=== PATIENT | female | born 1975 | race Caucasian/White ===

== ENCOUNTER → 2018-02-26 13:53 | Outpatient (CLI) | payer OTHER, SELFPAY ==
[2018-03-01 08:38] LABS: HPV Reflexed? NOT INDICATED
== END ==
PROVIDERS: PCP Family Medicine; Visit Provider Obstetrics & Gynecology
DX: Z12.4 Encounter for screening for malignant neoplasm of cervix (principal)
CPT/HCPCS: 88175; G0145

== ENCOUNTER → 2020-04-10 10:23 | Outpatient (CLI) | payer OTHER, SELFPAY ==
--- NOTE | 2020-04-10 10:27 | BI_ITS ---
MAMMOGRAPHY - BILATERAL SCREENING REASON FOR EXAM: Female, 44 years old. Routine annual screening examination. PERTINENT HISTORY: Grandmother with breast cancer. TECHNIQUE: Digital bilateral breast bandar (3D mammographic acquisition) in the CC and MLO projections. 2-D mediolateral oblique (MLO) and craniocaudad (CC) views of both breasts were obtained. CAD: Full Field Digital Mammography with Computer Added Detection was performed. COMPARISON: Comparison is made with prior study dated 08/01/2016 and 01/29/2015. FINDINGS: Breast Composition: There are scattered areas of fibroglandular density. There are no dominant masses or suspicious calcifications. Stable asymmetry of breast tissue were more breast tissue is seen in the subareolar region of the right breast as compared to the left breast. No other significant abnormalities are identified. There has been no significant change since the prior study. BI/SCRN MAMM (CAD)W/BANDAR BILAT IMPRESSION: Stable bilateral screening mammogram. Yearly follow-up mammogram recommended. (A) ASSESSMENT CATEGORY: BIRADS Category 2: Benign. A letter regarding these results will be sent to the patient by the facility within 30 days. Approximately 10% of breast cancers are not detected by mammography. A normal mammogram should not delay biopsy of a clinically suspicious abnormality. [id number] Electronically Signed: Ruslan Quintanilla, at 13:00 EST , Service support ,
== END ==
PROVIDERS: PCP Family Medicine; Referring Provider Student in an Organized Health Care Education/Training Program; Visit Provider Student in an Organized Health Care Education/Training Program
DX: Z12.31 Encounter for screening mammogram for malignant neoplasm of breast (principal)
CPT/HCPCS: 77063; 77067

== ENCOUNTER 2021-06-03 09:04 | Outpatient (CLI) | payer OTHER, SELFPAY ==
[2021-06-09 16:10] LABS: HPV APTIMA, High Risk Negative (Negative)
== END 2021-06-03 23:59 | disposition home or self-care (01) ==
LOC: WOBLAB 09:05
PROVIDERS: PCP Family Medicine; Visit Provider Student in an Organized Health Care Education/Training Program
DX: Z12.4 Encounter for screening for malignant neoplasm of cervix (principal)
CPT/HCPCS: 87624; 88175; G0145

== ENCOUNTER → 2021-07-28 | Outpatient (CLI) | payer OTHER, SELFPAY ==
--- NOTE | 2021-07-28 15:28 | BI_ITS ---
MAMMOGRAPHY - BILATERAL SCREENING REASON FOR EXAM: Female, 45 years old. Routine annual screening examination. PERTINENT HISTORY: Grandmother with breast cancer. Aunt with breast cancer. TECHNIQUE: Digital bilateral breast bandar (3D mammographic acquisition) in the CC and MLO projections. 2-D mediolateral oblique (MLO) and craniocaudad (CC) views of both breasts were obtained. CAD: Full Field Digital Mammography with Computer Added Detection was performed. COMPARISON: Comparison is made with prior study dated 04/10/2020 and 08/01/2016. FINDINGS: Breast Composition: There are scattered areas of fibroglandular density. There are no dominant masses or suspicious calcifications. No other significant abnormalities are identified. There has been no significant change since the prior study. BI/SCRN MAMM (CAD)W/BANDAR BILAT IMPRESSION: Stable bilateral screening mammogram. Yearly follow-up mammogram recommended. (A) ASSESSMENT CATEGORY: BIRADS Category 1: Negative. A letter regarding these results will be sent to the patient by the facility within 30 days. Approximately 10% of breast cancers are not detected by mammography. A normal mammogram should not delay biopsy of a clinically suspicious abnormality. [id number] Electronically Signed: Ruslan Quintanilla MD at 8:00 EDT ,
== END | disposition home or self-care (01) ==
LOC: OPBI 15:25
PROVIDERS: PCP Physician Assistant; Referring Provider Student in an Organized Health Care Education/Training Program; Visit Provider Student in an Organized Health Care Education/Training Program
DX: Z12.31 Encounter for screening mammogram for malignant neoplasm of breast (principal)
CPT/HCPCS: 77063; 77067

== ENCOUNTER → 2022-08-17 | Outpatient (CLI) | payer OTHER, SELFPAY ==
--- NOTE | 2022-08-17 14:01 | BI_ITS ---
MAMMOGRAPHY - BILATERAL SCREENING REASON FOR EXAM: Female, 46 years old. Routine annual screening examination. PERTINENT HISTORY: Aunt with breast cancer. Grandmother with breast cancer. TECHNIQUE: Digital bilateral breast bandar (3D mammographic acquisition) in the CC and MLO projections. 2-D mediolateral oblique (MLO) and craniocaudad (CC) views of both breasts were obtained. CAD: Full Field Digital Mammography with Computer Added Detection was performed. COMPARISON: Screening mammogram from 07/28/2021, 04/10/2020. FINDINGS: Breast Composition: There are scattered areas of fibroglandular density. There are no dominant masses or suspicious calcifications. No other significant abnormalities are identified. There has been no significant change since the prior study. BI/SCRN MAMM (CAD)W/BANDAR BILAT IMPRESSION: Stable bilateral screening mammogram. Yearly follow-up mammogram recommended. (A) ASSESSMENT CATEGORY: BIRADS Category 1: Negative. A letter regarding these results will be sent to the patient by the facility within 30 days. Approximately 10% of breast cancers are not detected by mammography. A normal mammogram should not delay biopsy of a clinically suspicious abnormality. Electronically Signed: Esa Roth DO at 15:29 EDT ,
== END | disposition home or self-care (01) ==
LOC: OPBI 13:59
PROVIDERS: PCP Physician Assistant; Referring Provider Student in an Organized Health Care Education/Training Program; Visit Provider Student in an Organized Health Care Education/Training Program
DX: Z12.31 Encounter for screening mammogram for malignant neoplasm of breast (principal)
CPT/HCPCS: 77063; 77067

== ENCOUNTER 2023-03-16 17:25 | Emergency (ER) | payer OTHER, SELFPAY ==
[2023-03-16 17:26] VITALS: BP 134/77; PULSE 81; RESP 14; TEMP 36.1; O2SAT 98; BMI 26.2
[2023-03-16 17:55] LABS: Absolute Lymphocyte Count 3.16 X10^3/uL (0.83-4.51); Absolute Neutrophil Count 4.3 X10^3/uL (2.0-7.7); Basophil# 0.07 X10^3/uL; Basophil% 0.8 % (0-1); Eosinophil# 0.18 X10^3/uL; Eosinophils% 2.1 % (0-5); Hemoglobin 12.7 g/dL (12.0-15.0); Lymphocyte # 3.16 X10^3/ul (0.83-4.51); Lymphocyte % 37.6 % (19-41); Mean Corp Hgb Conc 32.6 g/dL (32-36); Mean Corpuscular Hgb 30.1 pg (27.0-32.0); Mean Corpuscular Volume 92.4 fL (81-99); Mean Platelet Vol. 9.6 fl (6.2-12.0); Monocyte# 0.67 X10^3/uL; NRBC Flagged by Analyzer 0 % (0-5); Neutrophil # 4.32 X10^3/uL (2.7-7.7); Neutrophil % 51.4 % (47-70); Platelet Count 273 K/mm3 (150-450); RBC Distribution Width CV 11.9 % (11.6-14.6); RBC Distribution Width SD 39.8 fl (35.1-43.9); Red Blood Count 4.22 M/mm3 (4.2-5.4); White Blood Count 8.4 K/mm3 (4.4-11.0)
[2023-03-16 18:03] LABS: Internal QC Validated? YES +Cl - CLEAR BKGD; Pregnancy, Serum, hCG Quali. NEGATIVE Negative
--- NOTE | 2023-03-16 18:07 | ED.RN ---
PATIENT CAME TO ALERT THIS NURSE WHILE IN TRIAGE AREA THAT PATIENT IS REQUESTING A NURSE, CAME DOWN THE HALLWAY TO FIND THIS PATIENT PALE AND DIAPHORETIC AND NEAR SYNCOPE. PATIENT WAS LOWERED TO THE GROUND BY THIS NURSE AND AND BECAME UNRESPONSIVE FOR APPROX 15 SECONDS. NO INJURY TO PATIENT. PATIENT BECAME ALERT AND CONTINUED TO BE DIAPHORETIC AND PALE. A ROOM BECAME AVAILABLE SHORTLY AFTER AND PATIENT PLACED TO ROOM.
[2023-03-16 18:11] LABS: ALB/GLOB Ratio 1.1 RATIO (0.9-2.4); AST(SGOT) 12 U/L (15-37); Alanine Aminotransfer ALT/SGPT 13 U/L (13-56); Albumin, Serum 3.8 g/dL (3.2-5.0); Alkaline Phosphatase 69 U/L (45-117); Anion Gap 4 (5-15); BUN 12 mg/dL (7-18); BUN/Creat Ratio 18.6 RATIO (10-20); Calcium,Total 8.8 mg/dL (8.5-10.1); Chloride 108 mmol/L (98-107); Creatinine, Serum 0.64 mg/dL (0.55-1.02); EST Glomerular Filtration Rate 105 mL/min (>60); Est Glom Filt Rate - Afr Amer 127 mL/min (>60); Estimated Creatinine Clearance 97.78 ml/min; Globulin 3.6 g/dL (2.2-4.2); Glucose 93 mg/dL (74-106); Potassium 3.6 mmol/L (3.5-5.1); Protein, Total 7.4 g/dL (6.4-8.2); Sodium Level 138 mmol/L (136-145)
--- NOTE | 2023-03-16 18:18 | EX.ED.DYSGE1 ---
HPI History of Present Illness Chief Complaint: Abd Pain Informant: patient Onset/Context/Timing Onset: Month(s) Narrative Narrative: Patient presents secondary to upper abdominal pain. She reports having intermittent upper abdominal pain since November when she had COVID. Over the past 2 weeks pain has been more frequent and significant. She was seen by her PCP 2 days ago who ordered an ultrasound today. Patient states she was called this afternoon stating that she has gallstones with evidence of cholecystitis. She denies fever or chills. She has not had vomiting. She states she has not noted worsening of the pain with certain foods. [facility] Medical History (Updated 03/16/23 @ 20:[address] Kateryna Goldberg MD) Rheumatoid arthritis Allergy/AdvReac Type Severity Reaction Status Date / Time No Known Allergies Allergy Verified 03/16/23 17:25 Social History Smoking Status: Never smoker ROS ROS ED Constitutional Constitutional ED: Denies chills or fever(s) ENT ENT ED: Denies rhinorrhea or sore throat Cardiovascular Cardiovascular: Denies chest pain or palpitations Respiratory/Chest Respiratory/Chest: Denies cough or dyspnea Gastrointestinal Gastrointestinal: Reports abdominal pain and nausea; Denies diarrhea or vomiting Genitourinary Genitourinary ED: Denies dysuria Musculoskeletal Musculoskeletal: Reports back pain; Denies extremity pain Integumentary Denies Abrasions or rash Neurologic Neurologic: Denies headache(s) or weakness Psychiatric Psychiatric: Denies anxiety or depression Allergic/Immunologic Allergic/Immunologic ED: Denies lip swelling or urticaria EXAM Physical Exam Const Vital Signs: 03/16/23 17:26 Temperature 96.9 F L Temperature Source Temporal Pulse Rate 81 Respiratory Rate 14 Blood Pressure 134/77 H Blood Pressure Mean 96 Pulse Ox 98 Oxygen Delivery Method Room Air Positive well nourished and well developed General Appearance ED: well developed HEENT Reports moist mucous membranes Eyes EOMs intact bilaterally Chest Wall inspection of chest normal Resp normal respiratory effort and clear to auscultation bilaterally Cardio regular rate and regular rhythm GI GI Narrative: Abdomen soft with minimal tenderness in the right upper quadrant. No guarding or rebound. Extremity normal to inspection Neuro oriented x3 and no sensory deficits noted Motor Exam: strength 5/5 throughout Psych mental status grossly normal Skin no rashes or lesions noted MDM MDM MDM Narrative Medical decision making narrative: I was able to find the report from the patient's ultrasound she had performed earlier this morning. Impression of the study is cholelithiasis with large gallstones and biliary sludge filling the gallbladder and gallbladder wall thickening suspicious for acute cholecystitis. Wall thickness is 5 mm. They state no pericholecystic fluid was noted and the sonographic Gaytan sign was not assessed. IV line is established. Patient be given morphine and Zofran for pain and nausea. Labwork was obtained from triage. White blood cell count is normal at 8.4 with 51% neutrophils. Patient is noted to be on Enbrel and leflunomide for her rheumatoid arthritis which may limit her white count response. Chemistry studies are unremarkable. LFTs are normal at this time. test is negative. After I had seen the patient and was reviewing her workup I was notified by nursing staff that the patient had a syncopal episode out front while awaiting triage. Patient states she was sitting in the puri chair waiting to be seen when she told her she did not feel right. She stated that she was either going to throw up or pass out. He stood up to go get a nurse and when they came back patient had had a syncopal episode while sitting in the chair. They put her in a wheelchair and brought her back to the room for evaluation. She denied having chest pain, palpitations, or shortness of breath. At this time patient is placed on classroom monitor. EKG is obtained along with troponin. History & Record Review Discussion w/independent historian: Patient and Significant other Lab Data Attestation: I reviewed the patient's lab results. Labs: Laboratory Results - last 24 hr 03/16/23 03/16/23 17:50 18:45 WBC 8.4 RBC 4.22 Hgb 12.7 Hct 39.0 MCV 92.4 MCH 30.1 MCHC 32.6 RDW Std Deviation 39.8 RDW Coeff of Joann 11.9 Plt Count 273 MPV 9.6 Immature Gran % (Auto) 0.100 Neut % (Auto) 51.4 Lymph % (Auto) 37.6 [place] % (Auto) 8.0 Eos % (Auto) 2.1 Baso % (Auto) 0.8 Absolute Neuts (auto) 4.3 Absolute Lymphs (auto) 3.16 Nucleated RBC % 0 Sodium 138 Potassium 3.6 Chloride 108 H Carbon Dioxide 26.0 Anion Gap 4 L BUN 12 Creatinine 0.64 Estim Creat Clear Calc 97.78 Est GFR (MDRD) Af Amer 127 Est GFR (MDRD) Non-Af 105 BUN/Creatinine Ratio 18.6 Glucose 93 Calcium 8.8 Total Bilirubin 0.30 AST 12 L ALT 13 Alkaline Phosphatase 69 Troponin I High Sens 4 Total Protein 7.4 Albumin 3.8 Globulin 3.6 Albumin/Globulin Ratio 1.1 Serum , Qual NEGATIVE Urine Color Yellow Urine Clarity Clear Urine pH 5.0 Ur Specific [place] 1.020 Urine Protein 15 H Urine Glucose (UA) Normal Urine Ketones Negative Urine Occult Blood 150 H Urine Nitrite Negative Urine Bilirubin Negative Urine Urobilinogen Normal Ur Leukocyte Esterase Negative Urine RBC 0-5 SEEN Urine WBC 0-5 SEEN Ur Squamous Epith Cells 0-5 SEEN Urine Bacteria RARE Urine Mucus 1+ Radiography Diagnostic Testing: Clinical Impression(s) from Imaging Studies Abdomen/Pelvis CT 03/16/23 18:58 IMPRESSION: Multiple gallstones with early signs of acute cholecystitis not excluded. Recommend follow-up with right upper quadrant ultrasound. No acute appendicitis or bowel obstruction. Electronically Signed: Carlota Nation MD at 19:39 EST Reading Location ID and State: [id number] [facility] [employer] , Service support , Chest CTA 03/16/23 18:58 IMPRESSION: Negative CTA chest examination, without a demonstrated pulmonary embolism or arterial dissection. Minimal posterior dependent atelectasis, otherwise no acute cardiopulmonary disease. Electronically Signed: Carlota Nation MD at 19:34 EST , EKG Initial EKG: Attestation: I personally reviewed and interpreted this EKG as follows: Interpretation: Sinus Rhythm (Sinus at 68 with no acute ischemia.) Treatment and Re-Evaluation :: As mentioned above, white count and LFTs are all unremarkable. Patient's troponin returns normal. EKG is sinus rhythm with no acute ischemia. CTA of the chest reveals no evidence of PE or dissection. No acute findings. CT scan of the abdomen pelvis reveals multiple gallstones with early sign of acute cholecystitis not excluded. I spoke with Dr. Melara after I initially saw the patient. Patient's lab work is unremarkable. While patient does have evidence of gallstones there is no evidence of pericholecystic fluid. She is minimally tender on exam. Patient was just given a prescription for omeprazole which she will start taking regularly. She will also keep a journal of when her symptoms seem to get worse. She will follow-up with Dr. Melara as an outpatient for elective surgery. Patient was advised if her symptoms worsen at all to return to the emergency room and it can be done on an emergent basis if she was to worsen. Patient is comfortable with this plan. Return instructions given. Discharge Plan Triage Chief Complaint: Abd Pain ED Provider: Kateryna Goldberg Dx/Rx/DC Orders Clinical Impression: Syncope, vasovagal, Gallstones Instructions: ED Gallstones with Biliary Colic, ED Fainting, Vagal Reaction Primary Care Provider: Shaunna Chung Referrals: Cayla Melara MD [Med Staff - Active Staff] - As soon as possible Shaunna Chung PA [Primary Care Provider] - Disposition Disposition: Home, Self Care
--- NOTE | 2023-03-16 18:28 | EKG12_ITS ---
Test Reason : SYNCOPE Blood Pressure : / mmHG Vent. Rate : 068 BPM Atrial Rate : 068 BPM P-R Int : 136 ms QRS Dur : 080 ms QT Int : 394 ms P-R-T Axes : 010 018 027 degrees QTc Int : 418 ms Normal sinus rhythm Normal ECG Confirmed by RAFA LUI, RAH ([id number]), purchasing expeditor JOSH HAIDER ([id number]) on 03/17/2023 2:05:42 PM Referred By: Confirmed By:RAH CRAIG MD
--- NOTE | 2023-03-16 18:30 | ED.RN ---
NO OLD EKG
--- NOTE | 2023-03-16 18:58 | CT_ITS ---
STUDY: CT ABDOMEN AND PELVIS WITH CONTRAST REASON FOR EXAM: Female, 47 years old. RUQ pain - ? cholecystitis on US RADIATION DOSAGE (If Supplied By Facility): CTDIvol = ( 7.41 ) mGy, DLP = ( 681.49 ) mGycm TECHNIQUE: Transaxial images were obtained from the dome of the diaphragm to the symphysis pubis without oral contrast. IV 100mL Isovue-370 was administered. Sagittal and coronal images were reconstructed. Individualized dose optimization techniques were used for this CT. COMPARISON: None. FINDINGS: Mild posterior dependent atelectasis. The visualized portions of the heart are within normal limits. Small low-attenuation structure within the anterior aspect of the left liver lobe measuring 9 mm most compatible with a liver cyst by Hounsfield units. Remainder of the liver unremarkable. Multiple gallstones, largest measuring 2.5 cm and some present within the gallbladder neck. There is borderline mild fullness of the gallbladder wall. Otherwise unremarkable biliary system . Normal spleen. Normal pancreas. Normal bilateral adrenal glands. Normal right kidney. Normal left kidney. Normal visualized stomach. Normal small intestine. Normal colon. The appendix is visualized and appears normal. Normal abdominal aorta. Normal inferior vena cava. Normal retroperitoneum. Normal urinary bladder. The uterus is retroflexed. Tiny fat-containing umbilical hernia. No attenuation lesion with coarsened trabecula within the L3 vertebral body measuring 1.7 cm most compatible with vertebral body hemangioma. Multilevel degenerative disease of the spine, more severe at L3-L4. Mild degenerative disease of bilateral hips. CT/Abdomen/Pelvis W IV Cont ONLY IMPRESSION: Multiple gallstones with early signs of acute cholecystitis not excluded. Recommend follow-up with right upper quadrant ultrasound. No acute appendicitis or bowel obstruction. Electronically Signed: Carlota Nation MD at 19:39 EST ,
--- NOTE | 2023-03-16 18:58 | CT_ITS ---
STUDY: CTA CHEST REASON FOR EXAM: Female, 47 years old. syncope, upper abd pain RADIATION DOSAGE (If Supplied By Facility): CTDIvol = ( 7.41 ) mGy, DLP = ( 681.49 ) mGycm TECHNIQUE: The examination was performed with the intravenous administration of IV 100mL Isovue-370. Post-processing of the angiographic images was performed, with multiplanar reformation and 3D reconstruction. Individualized dose optimization techniques were used for this CT. COMPARISON: None. FINDINGS: Normal enhancement of the main pulmonary artery and right and left pulmonary arteries. Normal enhancement of the bilateral peripheral pulmonary arteries. There is no demonstrated pulmonary embolism. Normal thoracic aorta and visualized great vessels. There is no demonstrated aortic dissection. Normal heart and pericardium. Normal mediastinum. Normal hilar regions. Normal visualized trachea and bronchi. The lungs are well expanded. Trace posterior dependent atelectasis throughout the lower lobes, otherwise normal pulmonary parenchyma. Normal pleura. Normal chest wall structures. There are mild degenerative changes of thoracic spine. Upper abdomen reveals gallstones. There is an indeterminate low-attenuation structure within the left liver lobe measuring 9 mm likely liver cyst based on Hounsfield units. Remainder of the visualized upper abdominal structures are unremarkable. CT/CTA Chest W/WO Contrast IMPRESSION: Negative CTA chest examination, without a demonstrated pulmonary embolism or arterial dissection. Minimal posterior dependent atelectasis, otherwise no acute cardiopulmonary disease. Electronically Signed: Carlota Nation MD at 19:34 EST ,
[2023-03-16 18:59] LABS: Troponin-I HS 4 pg/mL (3.0-54.0)
[2023-03-16 19:00] LABS: Color, Urine Yellow (Yellow); Glucose, Dipstick Normal (Normal); Ketone-Dipstick Negative (Negative); Leukocyte Esterase-Dipstick Negative /ul (Negative); Nitrite-Dipstick Negative (Negative); Occult Blood-Urine 150 /ul (Negative); Protein-Dipstick 15 mg/dl (Negative); Urine Bilirubin Dipstick Negative (Negative); Urine Clarity Clear (Clear); Urine Urobilinogen Normal (Normal)
[2023-03-16 19:06] LABS: Mucous, Urine 1+ /hpf (<or=2+); Red Blood Cells-Urine 0-5 SEEN /hpf (0-5); Squamous Epithelial Cells - UA 0-5 SEEN /hpf (5-10); White Blood Cells 0-5 SEEN /hpf (0-5)
[2023-03-16 19:07] LABS: Bacteria RARE /hpf (None Seen)
[2023-03-16] MEDS: 0.9% Normal Saline (1000mL) 1,000 ML 150 ML IV (19:19)
== END 2023-03-16 20:34 | disposition home or self-care (01) ==
PROVIDERS: Emergency Provider Emergency Medicine; PCP Physician Assistant; Visit Provider Emergency Medicine
DX: K80.10 Calculus of gallbladder with chronic cholecystitis without obstruction (principal); M06.9 Rheumatoid arthritis, unspecified; R55 Syncope and collapse
CPT/HCPCS: 71275; 74177; 80053; 81001; 84484; 84703; 85025; 93005; 96360; 99282; J7030; Q9967; A4216; J2405

== ENCOUNTER → 2023-03-16 | Outpatient (CLI) | payer OTHER, SELFPAY ==
--- NOTE | 2023-03-16 07:10 | US_ITS ---
ACR Level 3 findings have been noted. An addendum which confirms receipt of the report will follow. HISTORY: Abdominal pain. TECHNIQUE: Louis scale and color doppler imaging was performed of the right upper quadrant. 93 images. COMPARISON: None. FINDINGS: LIVER: 14.1 cm in length. Homogeneous echotexture without focal lesion demonstrated. No intrahepatic ductal dilatation. MAIN PORTAL VEIN: Patent with flow in the appropriate direction. COMMON BILE DUCT: 6 mm in diameter. GALLBLADDER: Multiple large gallstones measuring up to 2.5 cm and sludge filling the gallbladder. 5 mm wall thickness, thick and. No pericholecystic fluid. Sonographic Gaytan sign not assessed. PANCREAS: Visualized proximal portion unremarkable. RIGHT KIDNEY: 11.1 cm in length with a cortical thickness of 2.3 cm. Limited evaluation due to overlying bowel gas. No hydronephrosis or gross renal mass demonstrated. US/Gallbladder IMPRESSION: Cholelithiasis with large gallstones and biliary sludge filling the gallbladder and gallbladder wall thickening, suspicious for acute cholecystitis. Electronically Signed: Bee Farias MD at 13:30 EST ,
== END | disposition home or self-care (01) ==
LOC: US 07:07
PROVIDERS: PCP Physician Assistant; Referring Provider Physician Assistant; Visit Provider Physician Assistant
DX: R10.9 Unspecified abdominal pain (principal)
CPT/HCPCS: 76705

== ENCOUNTER 2023-04-06 05:56 | Day surgery (SDC) | payer OTHER, SELFPAY ==
[2023-04-06] VITALS (9 sets, daily range): BP systolic 117–140; BP diastolic 63–92; PULSE 56–93; RESP 14–18; TEMP 36.5–36.8; O2SAT 97–100; BMI 25.0
--- OUTSIDE RECORDS SUMMARY | 2023-04-06 06:08 | XMS RPT_ITS | CCD ---
Author Name Unknown Address 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 Name Role Phone SHELLY HOFFMAN MD Admitting Unavailable SHELLY HOFFMAN MD Attending Unavailable SHELLY HOFFMAN MD Primary Care Unavailable ROSE CHUNG Consulting Unavailable PROVIDER, UNKNOWN Consulting Unavailable SHELLY HOFFMAN MD Admitting Unavailable SHELLY HOFFMAN MD Attending Unavailable SHELLY HOFFMAN MD Primary Care Unavailable ROSE CHUNG Consulting Unavailable PROVIDER, UNKNOWN Consulting Unavailable SHELLY HOFFMAN MD Admitting Unavailable SHELLY HOFFMAN MD Attending Unavailable SHELLY HOFFMAN MD Primary Care Unavailable ROSE CHUNG Consulting Unavailable PROVIDER, UNKNOWN Consulting Unavailable SHELLY HOFFMAN MD Admitting Unavailable SHELLY HOFFMAN MD Attending Unavailable SHELLY HOFFMAN MD Primary Care Unavailable ROSE CHUNG Consulting Unavailable PROVIDER, UNKNOWN Consulting Unavailable Rose Chung PA-C Unavailable Franny Adam MD Unavailable Radha HUMMEL, Trish Unavailable Franck Arreola MD Unavailable Pantera PEREZN, Nilsa Mckeon Unavailable Unavailable Arlin Lomeli PA-C Unavailable [phone] Maria Eugenia Tamez Unavailable Unavailable Arlin Dueñas RN Unavailable Unavaila ble Roopa PEREZN, Darling Resendiz Unavailable Unavai lable Ryley SODA FOUNTAIN CLERK, Franny Stephen Unavailable Unavailab mira Bledsoe LPNKateryna Unavailable Unavailabl e Unavailable Unavailable Allergies Allergy Classification Reported Allergen(s) Allergy Type Date of Onset Reaction(s) Facility (4 sources) Naproxen Drug Allergy [facility], [facility].; [facility] Medications Current Medications Medication Drug Class(es) Dates Sig (Normalized) Sig (Original) 0.5 ml etanercept 50 mg/ml injection (4 sources) Tumor Necrosis Factor Umm inject 1 mg by subcutaneous injection every week ENBREL SURECLICK, 50MG/ML (Subcutaneous Solution) ; once weekly (50 MG/ML) Comments: Claudia Completed/Discontinued Medications Medication Drug Class(es) Dates Sig (Normalized) Sig (Original) acetaminophen 500 mg / HYDROcodone bitartrate 5 mg oral tablet (4 sources) Opioid Agonist Start: 04-12-2012 End: 08-19-2014 take 1-2 tablets by mouth once HYDROCODONE-ACETAMI NOPHEN, 5-500MG (Oral Tablet) ; 1-2 Tablet Tablet before bed, if needed for 0 days Quantity: 20 {Tablet} Refills: 0 Ordered: 28-Jun-2013 Start: 12-Apr-2012 End: 19-Aug-2014 Status: Discontinued Comments: This order discontinued per -Span. Problems Active Problems Problem Classification Problem Date Documented Da te Episodic/Chronic Abdominal pain (8 sources) Abdominal pain; Translations: [Unspecified abdominal pain] 03-13-2023 Episodic Acute bronchitis (4 sources) Acute bacterial bronchitis; Translations: [Acute bronchitis due to other specified organisms] 08-19-2014 Episodic Disorders of lipid metabolism (8 sources) Hypertriglyceridemia; Translations: [Pure hyperglyceridemia] 05-07-2021 Chronic Esophageal disorders (8 sources) Gastroesophageal reflux disease; Translations: [Gastro-esophageal reflux disease without esophagitis] 03-13-2023 Chronic Essential hypertension (16 sources) Hypertensive disorder; Translations: [Essential (primary) hypertension] 03-13-2023 Chronic Malaise and fatigue (4 sources) Fatigue; Translations: [Other fatigue] 07-22-2015 Episodic Other and unspecified benign neoplasm (12 sources) Hemangioma of skin; Translations: [Hemangioma of skin and subcutaneous tissue] 05-07-2021 Episodic Other circulatory disease (8 sources) Elevated blood pressure; Translations: [Elevated blood-pressure reading, without diagnosis of hypertension] 05-07-2021 Episodic Other ear and sense organ disorders (4 sources) Impacted cerumen of bilateral ears; Translations: [Impacted cerumen, bilateral] 08-19-2014 Episodic Other inflammatory condition of skin (4 sources) Intertrigo; Translations: [Erythema intertrigo] 09-01-2017 Episodic Other nutritional; endocrine; and metabolic disorders (4 sources) Overweight in adulthood with body mass index of 25 or more but less than 30; Translations: [Body mass index (BMI) 27.0-27.9, adult] 09-01-2017 Episodic Other screening for suspected conditions (not mental disorders or infectious disease) (20 sources) Screening status; Translations: [Encounter for screening for diabetes mellitus] 04-26-2021 Episodic Other skin disorders (12 sources) Eruption; Translations: [Rash and other nonspecific skin eruption] 03-13-2023 Episodic Other upper respiratory infections (4 sources) Sinusitis; Translations: [Chronic sinusitis, unspecified] 04-27-2016 Chronic Other upper respiratory infections (12 sources) Acute bacterial sinusitis; Translations: [Acute sinusitis, unspecified] 08-19-2014 Episodic Rheumatoid arthritis and related disease (12 sources) Inflammatory polyarthropathy; Translations: [Inflammatory polyarthropathy] 03-13-2023 Chronic Unclassified (4 sources) deliveries 05-07-2021 Past or Other Problems Problem Classification Problem Date Documented Da te Episodic/Chronic Unclassified (4 sources) Abdominal pain - The onset of the abdominal pain has been gradual and has been occurring in an intermittent (persistent in the past 2 weeks) pattern for 3 months. The course has been increasing. The pain is described as a moderate gnawing. The pain is located in the right upper quadrant and radiates to the back. The symptoms are aggravated by meals (1/2 to 1 hour after eating). There has been no associated constipation or diarrhea. Note for Abdominal pain : Had covid in mid November - mild symptoms - since then hasn't felt right. Had yogurt today and couldn't finish it. No bloated feeling right now but does. Sometimes both sides under the ribs. Sometimes hard to take a deep breath. Pain into shoulder blades at times. Wakes up and is hungry - feels fine; eats oatmeal and feels fine. Has had a couple of days that she doesn't feel well following that but otherwise usually in the evening. TUMS/pepto - takes a long time for it to go away. Falls asleep on her abdomen elevated and it goes away. It has been consistent now x close to 10 days without relief. Doesn't feel like her normal heartburn.Does belch quite a bit. Feels like she would feel better if she could throw up; no nausea or vomiting.No blood in stool - has had some black following pepto but otherwise not. BMs normal.Taking tumeric, vit B complex, MV, probiotic - but has been taking those usp - no change. 03-13-2023 Unclassified (4 sources) Well adult female - The patient feels well with minor complaints (Has dizziness at times when bending over or standing up quickly.), has good energy level and is sleeping poorly. The patient is not using any method of contraception at this time. The patient has a balanced diet and takes supplemental vitamins. The patient exercises 3 - 4 times per week. The patient sleeps 8 hours per night. Note for Well adult female : Doing DASH diet and weight is down 13 pounds.Home Bps have been good. 05-07-2021 Unclassified (4 sources) Rash - The onset of the rash has been acute and has been occurring in a persistent pattern for 5 days. The course has been increasing. The rash is characterized as red. The rash was first seen on the lower extremity. It spread to the back and the upper extremity. There has been associated itching. Note for Rash : Is tired and has a headache.Took benadryl twice yesterday and once so far today.Took oatmeal bath.No change in foods, skin care products, etc. Did get 3rd covid shot - not booster - on 03/12/21. Had covid arm with this --- still has in left upper arm a little. Rash started on legs and now noticing scattered on arms, legs, trunk.No change to RA meds. 04-01-2021 Unclassified (4 sources) lesion removal - Patient is here for lesion removal, it bleeds easilyy so wants it removed. Right inner leg. Present x years. Also has a spot on her right shoulder that she wants to have examined to see if treatment is necessary. Initially thought it was a bug bite or something. Present x 1 week. 11-23-2018 Unclassified (4 sources) Rash - The onset of the rash has been gradual and has been occurring in a persistent pattern for 10 days. The course has been increasing. The rash is characterized as red and raised above the skin. The rash was first seen on the abdomen (lower abdomen). There has been no progression. There has been associated itching and pain, while there has been no associated drainage. Note for Rash : Has been using miconazole cream which has helped but hasn't taken it away completely. 09-01-2017 Unclassified (4 sources) Cold Symptoms - Symptoms include nasal congestion, runny nose, ear fullness (both), scratchy throat, dry cough, headache and facial pain, but do not include ear pain or fever. The onset was gradual 10 day(s) ago. The symptoms occur constantly. The patient describes this as moderate in severity and worsening. Current treatment includes allergy medications (nasacort). Risk factors do not include child in daycare or smoking. The patient has been exposed to an individual with similar symptoms, but has not been exposed to an individual with a cough, an individual with an upper respiratory infection or an individual with strep. Note for Upper respiratory infection : Symptoms had improved but then worsened. Teeth hurt, headache, dizzy, ears feel full. 04-27-2016 Unclassified (4 sources) Abdominal pain - The onset of the abdominal pain has been acute and has been occurring in an intermittent pattern for 3 days. The course has been recurrent. The pain is described as a moderate sharp pain and stabbing. The pain is located in the epigastrium and radiates to the back. The symptoms are aggravated by meals (2 to 4 hours after eating) and exercise but are relieved by antacids (she tried tums, pepto bismol which didn't help so took 's nexium which did help ). There has been no associated constipation, diarrhea, dysuria, fever, nausea (maybe a little; just felt like stomach wasn't quite right) or vomiting. Note for Abdominal pain : Symptoms started immediately after she ate a bratwurst on Monday; didn't feel like anything was stuck; felt like if she could throw up she might feel better; worse when she lies down. The next day she had toast/tea, chicken noodle soup, and spaghetti (small amount).[place] fine on Monday.Monday she was ok all day. Had salad for supper and then when she went to bed she started with the epigastric pain again. Took nexium which helped.Stomach hurts this morning as well; belching.No pop since Monday other than small amount on Monday to see if that would calm her stomach. Drinks sweet tea with stevia.No recent use of NSAIDs or prednisone (has for breakthrough pain but has been a very long time since she has taken).No issues with this in the past. 01-20-2016 Unclassified (4 sources) Well adult female - The patient feels well with minor complaints (Has been feeling more fatigued since April; she saw her hand router operator a few weeks ago and was told labs (CBC/CMP) were normal and didn't see a link between the fatigue and her RA. She is questioning her thyroid as a possible cause. Has been exercising but is so tired even doing this. No snoring or episodes of apnea. Sleeps well but has fatigue in the morning when first gets up.), has decreased energy level, has good energy level, is sleeping poorly and is sleeping well. The first day of the last menstrual period was : (2 wks ago and is regular). The current method of contraception is: oral contraceptives. The patient has a balanced diet and takes supplemental vitamins. The patient exercises 3 - 4 times per week. The patient sleeps 7 hours per night. 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 Lobo. Repeat breast US was recently done; looks like a benign fibroadenoma.Weight has been stable. 07-22-2015 Unclassified (4 sources) Cold Symptoms - Symptoms include nasal congestion, runny nose, ear pain, ear fullness (right), sore throat (resolved), hoarseness, dry cough, wheezing (shortness of breath), fever, headache and facial pain (left sided; teeth hurt). The onset was sudden 10 day(s) ago (felt better this weekend but worse the last couple days). The symptoms occur constantly. The patient describes this as moderate in severity and worsening. Current treatment includes non-prescription cold medication, allergy medications, acetaminophen and NSAIDs. Risk factors do not include smoking. The patient has been exposed to an individual with similar symptoms. Patient denies history of seasonal allergies or tonsillectomy. Note for Upper respiratory infection : did hold RA injections the last few weeks due to these sx 08-19-2014 Unclassified (4 sources) Cold Symptoms - Symptoms include nasal congestion (and can feel draininge going down back of throat.), scratchy throat and dry cough (and hurts chest to cough.), but do not include ear pain, wheezing or fever. The onset was gradual 9 week(s) ago (Did have these symptoms about 7-10 days prior to recent flare up of symptoms. Had about 3 days in between when she actually felt ok.). The patient describes this as moderate in severity and unchanged. Current treatment includes non-prescription cold medication (Advil sinus the first time symptoms accurred but it did not help any. With most recent flare up has not used anything.). Risk factors do not include smoking. Note for Upper respiratory infection : No one else at home sick. reviewed by [facility] 06-28-2013 Unclassified (4 sources) Rash - The onset of the rash has been acute and has been occurring in a persistent pattern for 3 days (itching noticed the day before rash started). The course has been constant. The rash is characterized as red and raised above the skin. The rash was first seen on the lower extremity (upper right thigh). There has been no progression. There has been associated itching (earlier), pain (today) and edema (groin - lymph nodes feel swollen). There has been no associated fever or mucous membrane lesions. Note for Rash : Pt has applied cortisone topically with no improvement. (Pt is currently having menstrual cycle with some cramping.) 04-12-2012 Unclassified (4 sources) Cold Symptoms - Symptoms include nasal congestion, runny nose, purulent discharge, ear fullness, scratchy throat, productive cough, headache and facial pain (and upper dental pain), but do not include sneezing, ear pain, wheezing, fever, chills or general malaise. The onset was gradual 10 day(s) ago. The symptoms occur constantly. The patient describes this as moderate in severity and worsening. Current treatment includes non-prescription cold medication. Risk factors do not include smoking. The patient has been exposed to an individual with an upper respiratory infection. Patient denies history of seasonal allergies, recurrent sinusitis, asthma or recurrent ear infections. 05-24-2011 Results Test Name Value Interpretation Reference Range Facil ity Vital Signs Date Time Vital Sign Value Performing Clinician Aishwarya duran 03-13-2023 14:54-0500 Body height 165.1 cm Franny Hedrick [facility], [facility].; [facility] 03-13-2023 14:54-0500 Body mass index (BMI) [Ratio] 26.13 kg/m2 Franny Hedrick [facility], [facility].; [employer] [facility] 03-13-2023 14:54-0500 Body surface area Derived from formula 1.78 m2 [facility] [employer] [facility].; [facility] [facility]. 03-13-2023 14:54-0500 Body weight 71.22 kg Franny Hedrick [facility] [employer] [facility].; [employer] 03-13-2023 14:54-0500 Diastolic blood pressure 85 mm[Hg] Franny Stephen Ryley [facility] [employer] [facility].; [employer] [facility] Encounters Encounter Date Encounter Type Care Provider Facility Start: 03-23-2023 End: 03-23-2023 Telephone follow-up Rose Chung PA-C [facility] Phone[facility] Start: 03-13-2023 End: 03-13-2023 Patient encounter procedure Rose Chung PA-C Work Phone: [facility] [facility] Start: 10-13-2022 End: 10-13-2022 ambulatory SHELLY LIU [facility] Start: 07-21-2022 End: 07-21-2022 ambulatory SHELLY LIU [facility] Start: 04-26-2022 End: 04-26-2022 ambulatory SHELLY LIU [facility] Start: 01-31-2022 End: 01-31-2022 ambulatory SHELLY LIU [facility] Start: 11-04-2021 End: 11-04-2021 Office outpatient visit 15 minutes Rose Chung PA-C Work Phone: [facility] Start: 05-07-2021 End: 05-07-2021 Patient encounter procedure Rose ZURITAC Work Phone: [employer]. Start: 05-07-2021 End: 05-07-2021 Patient encounter status Rose Chung PA-C Work Phone: [employer]. Start: 04-26-2021 End: 04-26-2021 Orders Rose Chung PA-C Work Phone: [employer]. Start: 04-23-2021 End: 04-23-2021 Medication Rose RANDOLPH-C Work Phone: [employer]. Start: 04-05-2021 End: 04-05-2021 Orders Rose Chung PA-C Work Phone: [employer]. Start: 04-01-2021 End: 04-01-2021 Medication Rose ZURITAC Work Phone: [employer]. Start: 04-01-2021 End: 04-01-2021 Patient encounter procedure Rose ZURITAC Work Phone: [employer]. Start: 11-23-2018 End: 11-23-2018 Patient encounter procedure Rose RANDOLPH-C Work Phone: [employer]. Start: 09-24-2018 End: 09-21-2018 Historical Summary Rose ZURITAC Work Phone: [employer]. Start: 09-24-2018 End: 09-24-2018 Patient encounter procedure Kateryna Bledsoe LPN [employer] [employer]. Start: 09-24-2018 End: 09-24-2018 Periodic preventive med est patient 40-64yrs Rose Chung PA-C Work Phone: [employer]. Start: 08-31-2018 End: 08-31-2018 Orders Rose Chung PA-C Work Phone: [employer] Start: 08-30-2018 End: 08-30-2018 Historical Summary Rsoe Chung PA-C Work Phone: [employer]. Start: 09-01-2017 End: 09-01-2017 Office outpatient visit 10 minutes Rose Chung PA-C Work Phone: [employer]. Start: 04-27-2016 End: 04-27-2016 Patient encounter procedure Rose ZURITAC Work Phone: [employer]. Start: 01-20-2016 End: 01-20-2016 Patient encounter procedure Rose RANDOLPH-C Work Phone: [employer]. Start: 07-30-2015 End: 07-30-2015 Nursing evaluation of patient and report Rose RANDOLPH-C Work Phone: [employer]. Start: 07-30-2015 End: 07-30-2015 Patient encounter status Rose RANDOLPH-C Work Phone: [employer]. Start: 07-23-2015 End: 07-23-2015 Orders Rose RANDOLPH-C Work Phone: [employer]. Start: 07-23-2015 End: 07-23-2015 Patient encounter status Rose RANDOLPH-C Work Phone: [employer]. Start: 07-22-2015 End: 07-22-2015 Patient encounter procedure Rose Chung PA-C Work Phone: [employer] Start: 08-19-2014 End: 08-19-2014 Office outpatient visit 15 minutes Rose Chung PA-C Work Phone: [employer] Start: 06-28-2013 End: 06-28-2013 Patient encounter procedure Rose Chung PA-C Work Phone: [employer] Start: 04-12-2012 End: 04-12-2012 Patient encounter procedure Rose Chung CALIN Work Phone: [facility] [employer] Start: 05-24-2011 End: 05-24-2011 Patient encounter procedure Rose Chung TOMASATyTrevin Work Phone: [facility] [employer] Procedures Date Procedure Procedure Detail Performing Clinician Start: 03-13-2023 End: 03-16-2023 Us abdominal real time w/image limited Rose Trevino Sheldon LAYTON Work Phone: Plan of Treatment Date Care Activity Detail Author Start: 05-07-2021 Provider Instruction s for Treatment KD HM Issues, 40-49 female Indication: Well adult exam Start: 07-May-2021 Instruction Type: Provider Instructions for Treatment [facility] [employer]; [employer] Immunizations Immunization Date Immunization Notes Care Provider Fa cili 01-11-2021 influenza, injectabl e, quadrivalent, contains preservative Rose Sheldon LAYTON Work Phone: [employer]; [employer] Work Phone: 07-30-2015 TD(adult) unspecifie d formulation Rose Sheldon LAYTON Work Phone: [employer]; [employer] Payers Date Payer Category Payer Unknown [id number] 1975 Unknown [id number] 1975 Unknown [id number] 1975 Unknown [id number] Unknown [id number] Unknown [employer] Social History Date Type Detail Facility [facility] Use [facility] [employer] Tobacco Use: Tobacco Use: ; [facility]. [facility]. [facility].; [employer] [facility]. Work Phone: [facility] smoked tobacco [facility]. Work Phone: Summary Purpose Family History Breast Cancer Status:Active Comments:grandmo ther Hypertension Status:Active Comments:Mother. Osteoarthritis Status:Active Comments:Mother. Father. Skin Cancer Status:Active Comments:Mother. Father. Breast Cancer Status:Active Comments:grandmo ther Hypertension Status:Active Comments:Mother. Osteoarthritis Status:Active Comments:Mother. Father. Skin Cancer Status:Active Comments:Mother. Father. Breast Cancer Status:Active Comments:grandmo ther Hypertension Status:Active Comments:Mother. Osteoarthritis Status:Active Comments:Mother. Father. Skin Cancer Status:Active Comments:Mother. Father. Breast Cancer Status:Active Comments:grandmo ther Hypertension Status:Active Comments:Mother. Osteoarthritis Status:Active Comments:Mother. Father. Skin Cancer Status:Active Comments:Mother. Father. Advance Directives No Advanced Directives Records FoundNo Advanced Directives Records Found Additional Source Comments INFORMATION SOURCE (unrecogn ized section and content) DATE CREATED AUTHOR AUTHOR'S ORGANIZ ATION 10/14/2022 [facility] FOR RECORDS PERTAINING TO PATIENTS WHO ARE OR HAVE BEEN ENROLLED IN A CHEMICAL DEPENDENCY/SUBSTANCEABUSE PROGRAM, SOME INFORMATION MAY BE OMITTED. This clinical summary was aggregated from multiple sources. Caution should be exercised in using it in the provision of clinical care. This summary normalizes information from multiple sources, and as a consequence, information in this document may materially change the coding, format and clinical context of patient data. In addition, data may be omitted in some cases. CLINICAL DECISIONS SHOULD BE BASED ON THE PRIMARY CLINICAL RECORDS. [employer] provides no warranty or guarantee of the accuracy or completeness of information in this document.
[2023-04-06 06:21] LABS: Internal QC Validated? YES +Cl - CLEAR BKGD; Pregnancy, Urine Negative Negative
--- NOTE | 2023-04-06 06:22 | EKG12_ITS ---
Test Reason : PREOP Blood Pressure : / mmHG Vent. Rate : 078 BPM Atrial Rate : 078 BPM P-R Int : 128 ms QRS Dur : 074 ms QT Int : 362 ms P-R-T Axes : 013 020 028 degrees QTc Int : 412 ms Normal sinus rhythm Normal ECG When compared with ECG of 16-MAR-2023 18:16, No significant change was found Confirmed by RAFA LIU, RAH ([id number]), mapping editor JOSH HAIDER ([id number]) on 04/10/2023 2:02:50 PM Referred By: Cayla Melara Confirmed By:RAH CRAIG MD
[2023-04-06] MEDS: Lactated Ringers 1,000 ML 15 ML IV ×2 (06:24→09:44)
--- NOTE | 2023-04-06 07:05 | HP.PCM_ITS ---
History and Physical Date of Admission: 04/06/23 Date of Service: 03/28/23 MR#: [id number] Acct: [id number] Name: ROSE NAVA Rep #: [id number] : 1975 Provider: Dr. Cayla Melara MD Age/Sex: 47/F Location: [facility] Status: Signed Intake Vital Signs 03/16/2317:26 03/28/2412:03 Height 5 ft 5 in 5 ft 5 in Weight: 159 lb BMI 26.4 BP 126/87 H Blood Pressure Location Rt brachial Position Sitting Respiration 18 Pulse 80 Pulse Source Monitor Temp 97.9 F Temp Source Temporal Pulse Oximetry (%) 100 Oxygen Delivery Method room air Intake Visit Reasons: GALLBLADDER Chief Complaint: gallbladder Is patient in pain?: No Allergies No Known Allergies Allergy (Verified 03/28/23 13:04) Medications etanercept 50 mg/mL (1 mL) subcutaneous syringe (Enbrel) 50 mg subcut QWEEK 03/28/23 [History Confirmed 03/28/23] leflunomide 10 mg tablet (Arava) 10 mg PO DAILY 03/28/23 [History Confirmed 03/28/23] omeprazole 10 mg capsule,delayed release 10 mg PO DAILY 03/28/23 [History Confirmed 03/28/23] [facility] Medical History (Updated 03/24/23 @ 00:02 by Karina Zheng) Rheumatoid arthritis Surgical History (Updated 03/28/23 @ 13:02 by Arlin Tatum LPN) S/P Family History (Updated 03/28/23 @ 13:03 by Arlin Tatum LPN) Mother HypertensionDaughter LupusFather Skin cancer Social History (Updated 03/28/23 @ 13:03 by Arlin Tatum LPN) Smoking Status: Never smoker alcohol intake: current alcohol intake frequency: holidays/special occasions only substance use type: does not use HPI HPI HPI: 70-year-old female presents due to gallstones and right upper quadrant pain. Patient states currently her right upper quadrant pain is about a 1/10. Patient states it can go up to a 4?5/10 after she eats supper or certain foods. Patient states she has had these issues November 2022. Patient has been trying to avoid fatty greasy foods. Patient did have an outpatient ultrasound showed large gallstones measuring up to 2.5 cm called a 5 mm wall no pericholecystic fluid and the sonographic Gaytan's was not accessed. Patient did go to the ER at that time she had CT abdomen pelvis which called multiple gallstones and states early signs of acute cholecystitis not excluded no other acute findings found on CT. Patient had normal white blood cell count as well as no left shift at that time and normal LFTs. Pain did improve and patient was able to be discharged home from the ER. ROS [facility] Musculoskeletal: Yes rheumatoid arthritis Gastro Gastrointestinal: Yes abdominal pain Exam Const General: cooperative, healthy appearing, comfortable and no acute distress HENMT Head: normocephalic and atraumatic Neck Neck: supple Resp Effort & Inspection: normal respiratory effort Cardio Rate: regular rate GI Inspection: non-distended Palpation: soft, no hernias and nontender Skin General: no rashes or lesions noted Neuro General: CN's II-XI intact bilaterally Extrem General: normal to inspection Psych Mental Status: mental status grossly normal Attitude: cooperative Assessment and Plan Assessment and Plan (1) Gallstones: Status: Inactive Plan Did personally review patient's ultrasound as well as CT scans. Patient does have multiple large gallstones. Currently on exam patient does not have any pain. Reviewed the anatomy with the patient and discussed the procedure: laparoscopic cholecystectomy with cholangiograms, possible open. Review risks including but not limited to bleeding, infection, hernia, bile leak, retained gallstones requiring another procedure ERCP- Endoscopic Retrograde Cholangiopancreatography, injury to another organ (bile ducts, common bile duct, small bowel, etc.) and conversion to an open procedure. All questions were answered. Cayla Melara M.D. Pager: [phone] [facility] [address] [place] [address], [facility], [address] [place] [address] Office: [phone] Coding Level of Care Code Off vis,new,level 3 Diagnoses Gallstones K80.20 03/29/23 1041 <Electronically signed by Cayla Melara MD> Date Cayla Melara MD
[2023-04-06] MEDS: Cefazolin 2 GM in 0.9% Normal Saline (100mL Bag) 100 ML IV (07:24)
--- NOTE | 2023-04-06 07:30 | GALL_PTH ---
PATHOLOGY RESULTS PATIENT: ROSE NAVA LOC: [facility] U#:[id number] AGE/SX: 47/F ROOM: RE04/06/[address]: Dr. Cayla Melara MD : 1975 BED: DIS: 04/06/2023 SPEC #: [id number] RECD: 04/06/23 10:44 STATUS: LAI REMaulik #: [id number] LAVERN: 04/06/23 07:[address]: Cayla Melara DEPT: SURGICAL PATHOLOGY RECD BY: Lynette Nguyễn ENTERED: 04/06/23 10:45 SP TYPE: DEVEN GALICIA DR: TOMASA Rico Tissues: Gallbladder, NOS Liver, NOS Procedures: PAS with Diastase (control) Trichrome (control) Special Stain Group II PAS Stain (control) Surgery Specimen Level III Surgery Specimen Level V Retic (control) Iron Stain (control) HEADER OPERATION: Laparoscopic cholecystectomy with IOC PRE-OP DIAGNOSIS: Gallstones TISSUE SUBMITTED: A - Gallbladder, B - Liver biopsy MICROSCOPIC DIAGNOSIS A. Gallbladder, cholecystectomy: Chronic cholecystitis and cholelithiasis. B. Liver, core biopsy: Liver parenchymal tissue with focal minimal portal chronic inflammation. A fibrous nodule with chronic inflammation and non-necrotizing granuloma formation. See microscopic description and comment. SJ:gary 04/07/2023 COMMENT Findings may represent sarcoidosis in the appropriate clinical setting. Correlation with clinical, radiologic and laboratory findings and appropriate follow up are necessary. This case is discussed with Dr. Melara on 04/10/23. Case has been reviewed in consultation with Dr. Patino who concurs with the above diagnosis. IDC:AM MICROSCOPIC DESCRIPTION Slides are reviewed. The specimen shows liver parenchymal tissue with preserved lobular architecture. Significant lobular inflammation is not seen. Portal area show minimal chronic inflammation. A fibrous nodule with chronic inflammation and non-necrotizing granuloma formation is noted just below the capsule. Iron stain shows absent iron. Reticulin stain is unremarkable. Trichrome stain does not show any significant portal or periportal fibrosis. PAS stain with and without diastase does not show any abnormal accumulation of protein. Special stains for acid fast bacilli and fungi are negative for organisms. All stains are performed with appropriate matched controls. GROSS DESCRIPTION A - Received is one container labeled with the patient's name and designated gallbladder. The specimen consists of a gallbladder measuring 11.0 cm in length and up to 3.5 cm in diameter. It is previously partially opened. The external surface is pink-bear, smooth and glistening for the most part. Focally it is granular, hemorrhagic and contains cautery artifact. The gallbladder contains green-yellow mucoid bile. Present in the container are multiple greenish-brown, multifaceted stones measuring in aggregate 6.5 x 4.5 x 2.0 cm and 1.0 to 4.0 cm in greatest dimension. The cystic shows focal thickening in the cystic wall. The gallbladder wall measures up to 0.5 cm in thickness. [employer] sections from the gallbladder and the cystic duct are submitted in two cassettes. Cassette 1 contains the thickened portion of the cystic duct. B - Received in fixative is one container labeled with the patient's name and designated liver biopsy. The specimen consists of a fragment of brown soft tissue measuring 0.7 cm in length and 0.1 cm in diameter. The specimen is totally submitted in one cassette. / SJ:rg 04/06/2023 TC:3 CPT: 05605, 75135, 68745 x5 , 61082 x2
--- NOTE | 2023-04-06 07:48 | RAD_ITS ---
STUDY: INTRAOPERATIVE CHOLANGIOGRAM. REASON FOR EXAM: Female, 47 years old. LAP MARIALUISA WITH IOC FLUOROSCOPY TIME (if supplied): ( 4 seconds ) minutes/seconds. 1.19 mGy TECHNIQUE: An intraoperative glandular was performed by the surgeon. Imaging was submitted. COMPARISON: None. FINDINGS: The intra and extrahepatic biliary ducts are unremarkable. Free flow of contrast is seen in the duodenum. RAD/Cholangiogram/ O R,Initial IMPRESSION: Unremarkable intraoperative cholangiogram. Electronically Signed: Ruslan Quintanilla MD at 8:23 EST ,
[2023-04-06] MEDS: Bupivacaine Mpf 0.5% 30 ML VIAL (09:01)
--- NOTE | 2023-04-06 09:07 | OP.PCM_ITS ---
Report of Operation Date of Procedure: 04/06/23 Pre-Operative Diagnosis: Cholelithiasis, chronic cholecystitis Post-Operative Diagnosis: Same, small white liver lesions s/p bx Surgery/Procedure Performed:: Laparoscopic cholecystectomy with cholangiograms, liver biopsy Surgeon: Cayla Melara Type of Anesthesia: General/Supplemental Anesthesiologist: Richy Redman Special Medications: Ancef 2 g IV x 1 Specimen's removed: Gallbladder and stones, liver bx Estimated Blood Loss (mL): 50 Description of Procedure: Indications: this is a 47 year-old female who developed abdominal pain/nausea/vomiting and on workup was found to have cholelithiasis, with a normal common bile duct. Laparoscopic cholecystectomy was elected. Description procedure: The patient was placed on operating table in supine position. A timeout was completed verifying correct patient, procedure, site, position and special equipment prior to beginning procedure. General Anesthesia was induced. The abdomen was prepped and draped in usual sterile fashion. An incision was made in the natural skin line above the umbilicus. The fascia was elevated and incised. The peritoneum was elevated and incised. Entry into the peritoneum was confirmed visually and no bowel was noted in the vicinity of the incision. Chamberlain trocar was placed. The abdomen was insufflated with carbon dioxide to a pressure of 12-15 mmHg. Patient tolerated insufflation well. The laparoscope was then inserted and abdomen inspected. No injuries from initial trocar placement were noted. Additional trochars were then inserted in the following locations 5 mm trocar in the epigastrium and 2 more 5 mm trochars along the right costal margin. The abdomen was inspected liver noted to have occasional small white nodules. The table is placed in reverse Trendelenburg position with the right side up. The dome of the gallbladder was grasped with atraumatic grasper passed through the lateral port and retracted over the dome of the liver. Infundibulum was then grasped with atraumatic grasper through the midclavicular port and retract ed to the right lower quadrant. This maneuver exposed Calot's triangle. The peritoneum overlying the gallbladder infundibulum was then incised and cystic duct and artery identified and circumferentially dissected. Peterson catheter was used for cholangiograms. The cholangiogram showed good filling of the common bile duct into the duodenum with no filling defects, good filling of the right and left bile ducts as well. The cystic duct and artery were then doubly clipped and divided close to the gallbladder. The gallbladder then dissected from its peritoneal attachments by electrocautery. Additional was vessels ongoing to the gallbladder along the gallbladder fossa Hem-o-jeannette clips were placed. Hemostasis was checked and the gallbladder and contained stones were removed using the endoscopic retrieval bag through the umbilical port. Umbilical port was enlarged to accommodate the size of the gallbladder/stones. The gallbladder is passed off table as specimen. The gallbladder fossa was irrigated with saline and hemostasis obtained. There is no evidence of bleeding from the gallbladder fossa or cystic artery leakage of bile from the cystic duct stump. Zach-Cut liver biopsy was done of one of the small white nodules. Electrocautery was used for hemostasis at this area. Secondary trochars removed under direct vision. No bleeding was noted the trocar sites. The laparoscope was withdrawn and umbilical trocar removed. The abdomen was allowed to collapse. The fascia of the supraumbilical trocar was closed with 3 [id number] 0 Vicryl suture. The skin was closed with sutures of 4-0 Monocryl and Steri-Strips. The patient was extubated. The patient tolerated procedure well and was taken to the postanesthesia care unit in stable condition. Complications none
--- NOTE | 2023-04-06 09:17 | DCINST_ITS ---
Discharge Instructions Diet Discharge Diet: Light diet - advance as tolerated Activity Discharge Activity: May Not Drive (while taking narcotic pain medications.) May shower in (days): 1 Lifting Restrictions: no lifting >20 lbs x 2 wks, no strenuous exercise for 4 wks Dressing / Incision Call your doctor if your incision/area has: Continuous Slow Oozing, Sudden Increased Bleeding, Increased Pain/ Swelling, Increased Redness, Foul Smelling Discharge and Swelling at the incision site Call your doctor if you observe: Fever of 101 or Higher Remove Dressing in: 2 days Cleanse incision/area with: Soap & Water Additional Dressing/Incision Instructions:: Steri-Strips will fall off in 7 to 10 days, if they do not fall off okay to remove after 10 days. Follow Up Care Please Follow Up With: Cayla Melara MD When: Call the office for a follow-up appointment 2 weeks; after 5 PM and on the weekends call [phone] with any concerns. Test Results: Test results from this visit will be discussed in further detail at your follow- up appointment, if applicable. Discharge Plan Admission Attending Provider: Cayla Melara Primary Care Provider: Shaunna Chung Discharge Orders/Prescriptions Prescriptions: New oxycodone-acetaminophen 5-325 mg tablet 1 - 2 tab PO Q6H PRN (Reason: pain) 3 Days Qty: 14 0RF Held leflunomide [Arava] 10 mg tablet 10 mg PO DAILY Hold Instructions: until wound healed 5 weeks Enbrel 50 mg/mL (1 mL) syringe 50 mg subcut QWEEK Hold Instructions: until wound healed- 5 weeks TUMERIC 400 mg PO DAILY Hold Instructions: Resume on 04/10/23. No Action omeprazole 10 mg capsule,delayed release(DR/EC) 10 mg PO DAILY multivitamin [Daily Multi-Vitamin] Tablet 1 tab PO DAILY Probiotic 3 billion cell capsule 3,000 mmu cells PO DAILY Rx Instructions: administer with a meal Complex B-100 Tablet Extended Release 1 tab PO DAILY Referrals / Follow Up: Shaunna Chung PA [Primary Care Provider] - Disposition Disposition (needs filled in before D/C Order can be placed): Home, Self Care
[2023-04-06] MEDS: Oxycodone/Apap 5/325 Tablet PO (11:02)
== END 2023-04-06 12:10 | disposition home or self-care (01) ==
LOC: SDC 05:56 → AC 06:19
PROVIDERS: Anesthesiology; PCP Physician Assistant; Referring Provider Surgery; Visit Provider Surgery
PROC: (CPT 47610; principal; 2023-04-06 07:10)
DX: K80.10 Calculus of gallbladder with chronic cholecystitis without obstruction (principal); K73.9 Chronic hepatitis, unspecified; I10 Essential (primary) hypertension
CPT/HCPCS: 47563; 47000; 00790; 74300; 76000; 81025; 88304; 88307; 88313; 93005; J7120; J2405

== ENCOUNTER 2024-01-01 07:31 | Day surgery (SDC) | payer OTHER, SELFPAY ==
--- NOTE | 2024-01-01 07:44 | HP.PCM_ITS ---
HPI - General General Date of Service: 01/01/24 HPI Narrative ROSE NAVA, is a 48 F who presents for a screening colonoscopy. Patient never had previous colonoscopy. Patient denies any family history of colon cancer. Patient has bowel movements daily denies any blood. Patient denies any chronic abdominal pain/nausea/vomiting/reflux. Patient lap chikis in March states that occasionally when she bends down she will have a pinching sensation in the right upper quadrant which resolves when she stands up. Sensation is mild overall. [facility] Medical History Wears glasses History of steroid therapy Anemia Syncope Non-smoker Hypertension Rheumatoid arthritis Home Medications ?Medication ?Instructions ?Recorded ?Last Taken ?Type etanercept 50 mg/mL (1 mL) 50 mg subcut QWEEK 03/28/23 03/27/23 History subcutaneous syringe (Enbrel) leflunomide 10 mg tablet (Arava) 10 mg PO DAILY 03/28/23 03/27/23 History multivitamin (Daily Multi-Vitamin 1 tab PO DAILY 04/03/23 03/29/23 History tablet) vitamin B complex (Complex B-100 1 tab PO DAILY 04/03/23 Unknown History tablet,extended release) turmeric 400 mg capsule 400 mg PO DAILY 11/22/23 12/27/23 History Allergy/AdvReac Type Severity Reaction Status Date / Time naproxen (From Aleve) AdvReac Upset Verified 01/01/24 07:45 Stomach Family History Mother Hypertension Skin cancer Daughter Lupus Father Skin cancer Grandmother Breast cancer Surgical History Hx of excision of hemangioma S/P laparoscopic cholecystectomy History of hysteroscopy S/P Social History household members: spouse current occupational status: employed current occupation: [employer] Smoking Status: Never smoker details: Rare alcohol use substance use type: does not use Past Medical/Surgical History Planned Operation Planned Operative Procedure(s): COLONOSCOPY-OA Previous Hospitalizations/Surgeries HX Hospitalizations: No Any Problems With Anesthesia: Yes (EPIDURAL 19+ YRS AGO/SHAKINESS/NO ISSUES WITH GENERAL ANESTHESIA) You/Your Family Experience Fever (Hyperthermia) With Anes: No Cholinesterase deficiency: No Cardiovascular Hx Hypertension: Yes (REACTION TO COVID VACC ON BP FOR 8-9 MONTHS AFTER/03/12/21) Respiratory Hx Sleep Apnea: No Hx Respiratory Tract Infection/Cold (presently): No Do You Snore Loudly (louder than talking or can be heard): No Do You Often Feel Tired/ Fatigued/ Sleepy Dring Daytime?: No Has Anyone Observed You Stop Breathing During Sleep?: No Result (for STOP score): Negative Smoking Status: Never smoker Neurological Does patient have nerve stimulator: No Miscellaneous Recent Exposure to Contagious Disease: No Allergies naproxen (From [employer]) Adverse Reaction (Verified 01/01/24 07:45) Upset Stomach Discharge Is Pt Admitted From a [facility], or a [facility]: No After D/C, Where Do you Plan to Go: Return Home Physical Exam Const alert, oriented x3 and no apparent distress HEENT normocephalic and head/scalp atraumatic Resp normal respiratory effort Cardio regular rate GI soft to palpation and non-tender; Negative for non-distended Palpation: Negative for guarding Extremity no clubbing, cyanosis or edema Skin no rashes or lesions noted Neuro CN's II-XII intact bilaterally Psych mental status grossly normal Assessment & Plan Assessment/Plan (1) Encounter for screening for malignant neoplasm of colon: Surgery Risks - Colonoscopy I discussed with the patient the risks of the procedure: Yes Risks Include but are not Limited To: Risks include but are not limited to: Bleeding, perforation requiring further surgery, inability to complete colonoscopy requiring barium enema.
[2024-01-01 07:45] VITALS: BP 125/98; PULSE 89; RESP 16; TEMP 36.1; O2SAT 100; BMI 26.6
[2024-01-01 08:13] VITALS: BP 125/98; PULSE 89; RESP 16; TEMP 36.1; O2SAT 100
--- NOTE | 2024-01-01 08:13 | PCM.PRE.AN2 ---
ASA Classification* ASA Classification ASA Classification: 2 Assessment & Plan Anesthesia* Anesthesia Assessment Anesthesia Assessment: Discussed sedation and/or anesthesia options, risks, benefits, and alternatives with patient/parents/legal guardian/POA. Questions invited. The patient/parents/legal guardian/POA seems to understand and agrees to proceed with anesthesia plan. Reviewed the physical assessment, medical history, allergy history and patient home medications list prior to surgery/procedure/anesthetic and documented any changes. Performed airway and anesthesia risk assessments. Anesthesia Type Anesthesia Type: MAC Anesthesia Focused Assessment* Temperature: 97 F Pulse Rate: 89 Blood Pressure: 125/98 Respiratory Rate: 16 Pulse Ox: 100 Airway Assessment Mouth opens: >3 cm Mallampati Score: II Focused Labs Anesthesia Preop lab: CBC WBC 8.4 K/mm3 (4.4-11.0) 03/16/23 17:50 RBC 4.22 M/mm3 (4.2-5.4) 03/16/23 17:50 Hgb 12.7 g/dL (12.0-15.0) 03/16/23 17:50 Hct 39.0 % (37-47) 03/16/23 17:50 Plt Count 273 K/mm3 (150-450) 03/16/23 17:50 CHEMISTRY Potassium 3.6 mmol/L (3.5-5.1) 03/16/23 17:50 Sodium 138 mmol/L (136-145) 03/16/23 17:50 BUN 12 mg/dL (7-18) 03/16/23 17:50 Creatinine 0.64 mg/dL (0.55-1.02) 03/16/23 17:50 Glucose 93 mg/dL (74-106) 03/16/23 17:50 COAG Urine Test Negative Negative 04/06/23 06:05 Pre-Assessment Diagnosis/Proposed Procedure Planned Operative Procedure(s): COLONOSCOPY-OA Anesthesia History 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 When Was Last Pacemaker Check QUESTION #4 FULL TEXT: You/Your Family Experience fever (hyperthermia) with Anesthesia Last Oral Intake Last Oral intake: Last Oral Intake NPO since 00:00 01/01/24 07:45 Meds taken in AM with sips of water? 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 Female Yes 12/28/23 10:48 HX of Motion Sickness No 12/28/23 10:48 HX of N/V After Surgery No 12/28/23 10:48 Non-Smoker Yes 12/28/23 10:48 Duration of Surgery greater No 12/28/23 10:48 than 60 minutes Number of Risk Factors 2 12/28/23 10:48 PONV Score Moderate Risk 12/28/23 10:48 Height & Weight Height & Weight: Anesthesia: Height & Weight Height 5 ft 5 in 01/01/24 07:45 Weight: 72.575 kg 01/01/24 07:45 Body Mass Index (BMI) 26.6 01/01/24 07:45 Respiratory Assessment Respiratory Assessment - mechanical maintenance worker: Respiratory Tract Infection Hx - mechanical maintenance worker Hx Respiratory Tract Infection No 01/01/24 07:44 STOP Sleep Apnea STOP Sleep Apnea - mechanical maintenance worker: STOP Sleep Apnea - mechanical maintenance worker Hx Hypertension Yes: REACTION TO COVID VACC 01/01/24 07:44 ON BP FOR 8-9 MONTHS AFTER/ 03/12/21 Hx Sleep Apnea No 01/01/24 07:44 CPAP BIPAP Do you snore loudly (louder No 01/01/24 07:44 than talking or can be heard Do you often feel tired/ No 01/01/24 07:44 fatigued/ sleepy during daytime? Has anyone observed you stop No 01/01/24 07:44 breathing during sleep? STOP Results Negative 01/01/24 07:44 QUESTION #5 FULL TEXT : Do you snore loudly (louder than talking or can be heard through closed doors)? 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 Specify any problems Hx of Preganancy in last 3 No 12/28/23 10:48 Months Nurse Filling Out Transfusion VCHRISTIN 12/28/23 10:48 & Questions: Date: 12/28/23 12/28/23 10:48 Time: 10:49 12/28/23 10:48 Patient unable to answer at this time (ie. confused, unrespo /Reproduction History /Reproductive History - mechanical maintenance worker: /Reproductive Hx- mechanical maintenance worker Hx Now Gestational Age (in weeks): EDC: Hx Hx Para Hx Section SAB No 12/28/23 10:48 PFSH Medical History Wears glasses History of steroid therapy Anemia Syncope Non-smoker Hypertension Rheumatoid arthritis Home Medications ?Medication ?Instructions ?Recorded ?Last Taken ?Type etanercept 50 mg/mL (1 mL) 50 mg subcut QWEEK 03/28/23 03/27/23 History subcutaneous syringe (Enbrel) leflunomide 10 mg tablet (Arava) 10 mg PO DAILY 03/28/23 03/27/23 History multivitamin (Daily Multi-Vitamin 1 tab PO DAILY 04/03/23 03/29/23 History tablet) vitamin B complex (Complex B-100 1 tab PO DAILY 04/03/23 Unknown History tablet,extended release) turmeric 400 mg capsule 400 mg PO DAILY 11/22/23 12/27/23 History Allergy/AdvReac Type Severity Reaction Status Date / Time naproxen (From Aleve) AdvReac Upset Verified 01/01/24 07:45 Stomach Family History Mother Hypertension Skin cancer Daughter Lupus Father Skin cancer Grandmother Breast cancer Surgical History Hx of excision of hemangioma S/P laparoscopic cholecystectomy History of hysteroscopy S/P Social History household members: spouse current occupational status: employed current occupation: [employer] Smoking Status: Never smoker details: Rare alcohol use substance use type: does not use Review of Systems (Anesthesia) ROS Narrative System reviewed and no additional complaints, except as documented.
[2024-01-01 08:55] VITALS: BP 104/72; PULSE 83; RESP 16; TEMP 36.3; O2SAT 96
--- NOTE | 2024-01-01 08:59 | PCM.POST.ANE ---
Anesthesia: Postop Eval I Current Vital Signs Temperature: 97.3 F Pulse Rate: 84 Blood Pressure: 104/72 Respiratory Rate: 16 Pulse Ox: 96 Oxygen Delivery Method: Room Air Assessment Airway patent: Yes Spontaneous unlabored respirations: Yes Mental status: Asleep nausea: No Vomiting: No Anesthesia Complication: No Fluid Hydration Crystalloid volume administer (ml): 54 Total IV fluid infused: 54 Progress Note Anesthesia document: Postop Eval 1 completed: Yes
[2024-01-01 09:00] VITALS: BP 104/72; BP 104/75; PULSE 101; PULSE 84; RESP 16; TEMP 36.3; O2SAT 94; O2SAT 96
--- NOTE | 2024-01-01 09:00 | OP.COLON_ITS ---
Patient Name: Shaunna Ruelas Procedure Date: 01/01/2024 8:25 AM Date of : 1975 Age: 48 Procedure: Colonoscopy Indications: Screening for colorectal malignant neoplasm Providers: Cayla Melara MD Referring MD: Shaunna Chung Medicines: Monitored Anesthesia Care Patient Profile: This is a 48 year old female. Last Colonoscopy: none. The patient's first colonoscopy is today. Complications: No immediate complications. Procedure: Pre-Anesthesia Assessment: - Prior to the procedure, a History and Physical was performed, and patient medications and allergies were reviewed. The patient's tolerance of previous anesthesia was also reviewed. The risks and benefits of the procedure and the sedation options and risks were discussed with the patient. All questions were answered, and informed consent was obtained. Prior Anticoagulants: The patient has taken no anticoagulant or antiplatelet agents. ASA Grade Assessment: Per anesthesia. After reviewing the risks and benefits, the patient was deemed in satisfactory condition to undergo the procedure. After I obtained informed consent, the scope was passed under direct vision. Throughout the procedure, the patient's blood pressure, pulse, and oxygen saturations were monitored continuously. The Colonoscope was introduced through the anus and advanced to the terminal ileum. The colonoscopy was performed without difficulty. The patient tolerated the procedure well. The quality of the bowel preparation was good. Scope In: 8:36:54 AM Scope Withdrawal Time 0 hours 8 minutes 8 seconds Scope Out: 8:51:45 AM Total Procedure Duration Time 0 hours 14 minutes 51 seconds Findings: Hemorrhoids were found on perianal exam. Non-bleeding internal hemorrhoids were found. The hemorrhoids were Grade I (internal hemorrhoids that do not prolapse). The terminal ileum appeared normal. A few small-mouthed diverticula were found in the sigmoid colon. The exam was otherwise without abnormality. Impression: - Hemorrhoids found on perianal exam. - Non-bleeding internal hemorrhoids. - The examined portion of the ileum was normal. - Diverticulosis in the sigmoid colon. - The examination was otherwise normal. - No specimens collected. Recommendation: - Discharge patient to home. - Resume previous diet. - Continue present medications. - Await pathology results. - Repeat colonoscopy in 10 years for screening purposes. Procedure Code(s): --- Professional --- G0121, PT, Colorectal cancer screening; colonoscopy on individual not meeting criteria for high risk Diagnosis Code(s): --- Professional --- Z12.11, Encounter for screening for malignant neoplasm of colon K64.0, First degree hemorrhoids K57.30, Diverticulosis of large intestine without perforation or abscess without bleeding CPT copyright 2021 [employer]. All rights reserved. The codes documented in this report are preliminary and upon roll forming machine set up mechanic review may be revised to meet current compliance requirements. MD Cayla Buckner MD 01/01/2024 9:00:05 AM This report has been signed electronically. Number of Addenda: 0 Note Initiated On: 01/01/2024 8:25 AM
--- NOTE | 2024-01-01 09:00 | OP.CCLET_ITS ---
01/01/2024 Shaunna Chung Re : Colonoscopy procedure for Shaunna Chung This procedure was performed on Monday, January 01, 2024. My impressions and recommendations are as follows: Impressions : - Hemorrhoids found on perianal exam. - Non-bleeding internal hemorrhoids. - The examined portion of the ileum was normal. - Diverticulosis in the sigmoid colon. - The examination was otherwise normal. - No specimens collected. Recommendations : - Discharge patient to home. - Resume previous diet. - Continue present medications. - Await pathology results. - Repeat colonoscopy in 10 years for screening purposes. My findings are described in the full procedure note, which is enclosed. If I can be of further assistance, please feel free to contact me at Doctor phone number(s): , Work: . Sincerely, MD Cayla Buckner MD 01/01/2024 9:00:05 AM This report has been signed electronically.
[2024-01-01 09:07] VITALS: BP 105/94; BP 125/98; PULSE 89; RESP 16; TEMP 37; O2SAT 96
[2024-01-01 09:24] VITALS: BP 125/98
--- NOTE | 2024-01-01 11:48 | PCM.POSTANE2 ---
Anesthesia Postop Eval I Sum Postop Eval Completion status Anesthesia document: Postop Eval 1 completed: Yes Anesthesia Postop Eval I Summary Anesthesia Postop Eval I Summary: Anesthesia Postop Eval I: Assessment Summary Airway patent Yes 01/01/24 09:00 [email or web address] Spontaneous unlabored Yes 01/01/24 09:00 [email or web address] respirations Mental status Asleep 01/01/24 09:00 [email or web address] nausea No 01/01/24 09:00 [email or web address] Vomiting No 01/01/24 09:00 [email or web address] Anesthesia Postop Eval I: Fluid Summary Crystalloid volume administer 54 01/01/24 09:00 [email or web address] (ml) Colloids volume administered ( ml) Blood Product volume administered (ml) Total IV fluid infused 54 01/01/24 09:00 [email or web address] Anesthesia Postop Eval I: Summary Notes Anesthesia Complication No 01/01/24 09:00 [email or web address] Anesthesia Complication Comment: Post-operative progress note Anesthesia: Postop Eval II Evaluation Mental status: Awake Pain Level: 0 nausea: No Vomiting: No
== END 2024-01-01 09:30 | disposition home or self-care (01) ==
LOC: EN 07:32 → AC 07:34
PROVIDERS: PCP Physician Assistant; Referring Provider Physician Assistant; Visit Provider Surgery
PROC: 0DJD8ZZ Inspection of Lower Intestinal Tract, Via Natural or Artificial Opening Endoscopic (ICD-10-PCS; CPT 45378; principal; 2024-01-01 08:40)
DX: Z12.11 Encounter for screening for malignant neoplasm of colon (principal); K57.30 Diverticulosis of large intestine without perforation or abscess without bleeding; K64.0 First degree hemorrhoids; I10 Essential (primary) hypertension; K64.4 Residual hemorrhoidal skin tags
CPT/HCPCS: 45378; J2405

== ENCOUNTER → 2024-03-22 | Outpatient (CLI) | payer OTHER, SELFPAY ==
--- NOTE | 2024-03-22 09:28 | BI_ITS ---
MAMMOGRAPHY - BILATERAL SCREENING 3-D TOMOSYNTHESIS REASON FOR EXAM: Female, 48 years old. SCREENING PERTINENT HISTORY: No significant family history. TECHNIQUE: 2-D mammograms and 3-D Tomosynthesis of the breast (s) were performed. CAD was performed. COMPARISON: 08/17/2022 FINDINGS: The breast composition is composed of scattered fibroglandular density. Scattered benign calcifications are seen. No dense spiculated masses or suspicious microcalcifications are identified. No architectural distortion is identified. There is no skin thickening or retraction. There has been no significant change since the prior study. BI/SCRN MAMM (CAD)W/BANDAR BILAT IMPRESSION: No mammographic signs of malignancy. Routine yearly mammograms recommended. ASSESSMENT CATEGORY: BIRADS Category 1: Negative. A letter regarding these results will be sent to the patient by the facility within 30 days. FOLLOW UP RECOMMENDATION: Yearly follow up mammogram recommended. (A) Approximately 10% of breast cancers are not detected by mammography. A normal mammogram should not delay biopsy of a clinically suspicious abnormality. Electronically Signed: Ferny Ferris MD at 19:43 EST ,
== END | disposition home or self-care (01) ==
LOC: OPBI 09:24
PROVIDERS: PCP Physician Assistant; Referring Provider Physician Assistant; Visit Provider Physician Assistant
DX: Z12.31 Encounter for screening mammogram for malignant neoplasm of breast (principal)
CPT/HCPCS: 77063; 77067

== ENCOUNTER → 2025-03-24 | Outpatient (CLI) | payer OTHER, SELFPAY ==
--- NOTE | 2025-03-24 11:32 | BI_ITS ---
EXAM: SCRN MAMM (CAD)W/BANDAR BILAT DATE: 03/24/2025 CLINICAL HISTORY: F, Age 49 y/o , SCREENING TECHNIQUE: Procedure Code: [id number] Modality: MG Procedure: SCRN MAMM (CAD)W/BANDAR BILAT COMPARISON: Prior exam(s) dated mammogram dated 03/22/2024, 08/17/2022, and 07/28/2021. FINDINGS: TISSUE DENSITY: There are scattered areas of fibroglandular density. Bilateral Breast Mammographic Findings: There is a stable lobulated nodular masslike density in the retroareolar region, far anterior aspect of the right breast Benign round microcalcifications are seen in the right breast. A stable lobulated density in the slightly lateral, far anterior aspect of the left breast is noted and is similar when compared to the prior exams. Benign round microcalcifications are seen in the left breast. No suspicious masses, suspicious cluster of microcalcifications, architectural distortion or secondary signs of malignancy is identified in either breast. BI/SCRN MAMM (CAD)W/BANDAR BILAT IMPRESSION: Benign screening mammogram OVERALL FINAL ASSESSMENT BI-RADS 2: BENIGN RECOMMENDATION: Routine annual follow-up in 1 Year Additional Recommendation none A letter with findings and recommendations will be mailed to the patient. Reading Location: [id number]
== END | disposition home or self-care (01) ==
LOC: OPBI 11:30
PROVIDERS: PCP Physician Assistant
DX: Z12.31 Encounter for screening mammogram for malignant neoplasm of breast (principal)
CPT/HCPCS: 77063; 77067